=== PATIENT | female | born 1945 | race Caucasian/White ===

== ENCOUNTER → 2017-06-18 | Outpatient (CLI) | payer MEDICARE, OTHER ==
--- NOTE | 2017-06-18 10:33 | WOMENS IMAGING REPORT ---
EXAM DESCRIPTION: BILAT SCREENING MAMMO W/CAD COMPLETED DATE/TIME: 06/18/2017 9:01 am REASON FOR STUDY: ROUTINE SCREENING; Z12.31 Z12.31 ENCNTR SCREEN MAMMOGRAM FOR MALIGNANT NEOPLASM O F LIBBY COMPARISON: 07/02/2016 and 06/26/2015. TECHNIQUE: Standard craniocaudal and mediolateral oblique views of each breast recorded using digita l acquisition. LIMITATIONS: None. FINDINGS: No masses, calcifications or architectural distortion. No areas of suspicion. Read with the assistance of CAD. .[facility] - R2 Cenova Version 1.3 .[facility] - R2 Cenova Version 1.3 .[facility] - R2 Cenova Version 2.4 .[facility] Cenova Version 2.4 .[facility] - R2 Tool Grinder Version 9.2 IMPRESSION: NORMAL MAMMOGRAM. BIRADS 1. BREAST DENSITY: c. The breasts are heterogeneously dense, which may obscure small masses. BIRAD: 1 NEGATIVE RECOMMENDATION: ROUTINE SCREENING COMMENT: The patient has been notified of the results by letter per MQSA requirements. Additional no tification policies are in place for contacting patient with suspicious or incomplete findings. Quality ID #[id number]: The [employer] recommends an annual screening mammogram for women aged 40 years or over. This facility utilizes a reminder system to ensure that all patients receive reminder letters, and/or direct phone calls for appointments. This includes reminders for routine scr eening mammograms, diagnostic mammograms, or other Breast Imaging Interventions when appropriate. Th is patient will be placed in the appropriate reminder system. The [employer] (ACR) has developed recommendations for screening MRI of the breast s in certain patient populations, to be used in conjunction with mammography. Breast MRI surveillanc e may be appropriate for women with more than 20% lifetime risk of developing breast cancer as deter mined by genetic testing, significant family history of the disease, or history of mantle radiation f or Hodgkins Disease. ACR Practice Guidelines 2008. TECHNICAL DOCUMENTATION: FINDING NUMBER: (1) ASSESSMENT: (1) JOB ID: [id number] [employer]- All Rights Reserved
== END ==
LOC: WI 08:43
PROVIDERS: ATTEND Family Medicine
DX: Z12.31 Encounter for screening mammogram for malignant neoplasm of breast (principal)
CPT/HCPCS: 77067; G0202

== ENCOUNTER → 2018-06-23 | Outpatient (CLI) | payer MEDICARE, OTHER ==
--- NOTE | 2018-06-23 14:34 | WOMENS IMAGING REPORT ---
EXAM DESCRIPTION: BILAT SCREENING MAMMO W/CAD COMPLETED DATE/TIME: 06/23/2018 2:15 pm REASON FOR STUDY: BILATERAL SCREENING MAMMO/Z12.31 Z12.31 ENCNTR SCREEN MAMMOGRAM FOR MALIGNANT LUBA PLASM OF LIBBY COMPARISON: June 2017 and June 2016 TECHNIQUE: Standard craniocaudal and mediolateral oblique views of each breast recorded using Footnotea l acquisition. LIMITATIONS: None. FINDINGS: No masses, calcifications or architectural distortion. No areas of suspicion. Read with the assistance of CAD. .[facility] - R2 Cenova Version 1.3 .[facility] Imaging - R2 Cenova Version 1.3 .[facility] - R2 Cenova Version 2.4 .[facility] [place] R2 Cenova Version 2.4 .[facility] - R2 Community Liaison Version 9.2 IMPRESSION: NORMAL MAMMOGRAM. BIRADS 1. BREAST DENSITY: c. The breasts are heterogeneously dense, which may obscure small masses. BIRAD: 1 NEGATIVE RECOMMENDATION: ROUTINE SCREENING COMMENT: The patient has been notified of the results by letter per [place] requirements. Additional no tification policies are in place for contacting patient with suspicious or incomplete findings. Quality ID #[id number]: The [employer] recommends an annual screening mammogram for women aged 40 years or over. This facility utilizes a reminder system to ensure that all patients receive reminder letters, and/or direct phone calls for appointments. This includes reminders for routine scr eening mammograms, diagnostic mammograms, or other Breast Imaging Interventions when appropriate. Th is patient will be placed in the appropriate reminder system. The [employer] (ACR) has developed recommendations for screening MRI of the breast s in certain patient populations, to be used in conjunction with mammography. Breast MRI surveillanc e may be appropriate for women with more than 20% lifetime risk of developing breast cancer as deter mined by genetic testing, significant family history of the disease, or history of mantle radiation f or Hodgkins Disease. ACR Practice Guidelines 2008. TECHNICAL DOCUMENTATION: FINDING NUMBER: (1) ASSESSMENT: (1) JOB ID: [id number] [employer]- All Rights Reserved Reading location - IP/workstation name: [email or web address]
== END ==
LOC: WI 13:50
PROVIDERS: ATTEND Family Medicine
DX: Z12.31 Encounter for screening mammogram for malignant neoplasm of breast (principal)
CPT/HCPCS: 77067

== ENCOUNTER → 2020-05-23 | Outpatient (CLI) | payer MEDICARE, OTHER ==
--- NOTE | 2020-05-23 12:36 | WOMENS IMAGING REPORT ---
EXAM DESCRIPTION: BONE DENSITY HIP/SPINE IMAGES COMPLETED DATE/TIME: 05/23/2020 9:59 am REASON FOR STUDY: M81.0 M81.0 AGE-RELATED OSTEOPOROSIS W/O CURRENT PATHOLOGICAL FRAC R01.1 CARDIAC MURMUR, UNSPECIFIED COMPARISON: 07/18/2005 TECHNIQUE: Dual-Energy X-ray Absorptiometry (DEXA) of the AP Spine and Hip. LIMITATIONS: None. FINDINGS: LUMBAR SPINE: The bone mineral density (BMD) measured from L1-L4 in the AP projection correlates with a T-score of 0.4, which is normal as defined by the World Health Organization. BMD Change vs Baseline: -4.8% HIP: The bone mineral density (BMD) measured in the left hip correlates with a T-score of -1.3, which is o steopenia as defined by the World Health Organization. BMD Change vs Baseline: N/A 10 year Fracture Risk Assessment: Major Osteoporotic Fracture: 12% Hip Fracture: 1.9% IMPRESSION: 1. LUMBAR SPINE WHO CLASSIFICATION: NORMAL. 2. HIP WHO CLASSIFICATION: OSTEOPENIA. CT COMMENT: The World Health Organization defines low BMD as follows: T-score: Normal: At or above -1.0 Osteopenia: Between -1.0 and -2.5 Osteoporosis: At or below -2.5 without fractures Established osteoporosis: At or below -2.5 with fractures In general, you may wish to consider: Diagnosis Treatment Follow-up DEXA Normal BMD Prevention 2-3 years Osteopenia Prevention/Therapy 1-2 years Osteoporosis Therapy Yearly TECHNICAL DOCUMENTATION: JOB ID: [id number] 2010 [employer]- All Rights Reserved Reading location - IP/workstation name: [email or web address]
--- NOTE | 2020-05-23 17:35 | XCELERA REPORT ---
[address] [address] Transthoracic Echocardiogram Report Name: GM BAEZ Age: 74 yrs Gender: Female : 1945 Patient Status: Outpatient Patient Location: [place] Study Date: 05/23/2020 10:24 AM Height: 58 in Weight: 170 lb BSA: 1.7 m2 Procedure: A complete two-dimensional transthoracic echocardiogram was performed (2D, M-mode, spectral and color flow Doppler). The study was technically adequate with some images being suboptimal in quality. Reason For Study: HEART MURMUR Ordering Physician: WENDY VAZQUEZ Performed By: Leonarda Garcia Interpretation Summary FINDINGS: technically difficult. LEFT VENTRICLE: LV Systolic function: LVEF is felt to be within normal limits. Best estimate is approximately LVEF is 60 to 65%. LV Diastolic Function: Grade I diastolic dysfunction noted. Wall motion: not all wall segment were well visualised. Regional wall motion cannot be accurately commented upon. Left ventricular chamber size: is within normal limit. Left ventricular wall thickness: is increased indicative of Mild LVH. RIGHT VENTRICLE: RV systolic function: is felt to be within normal limit. Right Ventricle Size: is within normal limits. LEFT ATRIUM size: is mildly dilated. RIGHT ATRIUM size: is within normal limit. INTER ATRIAL SEPTUM: No definite atrial septal defect noted however a small PFO could be missed. AORTIC ROOT: seems to be within normal limits. ASCENDING AORTA: is not well visualized. INFERIOR VENA CAVA: normal with normal respiratory variation VALVES: MITRAL VALVE: Leaflets are mildly thickened. Mobility seems to be within normal limits. Mitral Regurgitation: Trace mitral regurgitation is noted. Mitral Stenosis: No mitral stenosis noted. Mitral valve prolapse: none noted. AORTIC VALVE: all leaflets not well visualised but with mild thickening and adequate excursion. Aortic stenosis: No aortic stenosis noted. Aortic regurgitation: No aortic incompetence noted. TRICUSPID VALVE: mobility and structures within normal limit. Tricuspid stenosis: no tricuspid stenosis noted. Tricuspid regurgitation: Trace tricuspid regurgitation noted. Estimated RVS : cannot be accurately commented upon but possibly at upper limit of normal. PULMONARY VALVE: was not well visualized but no significant abnormalities suspected. Pulmonary stenosis: no pulmonary stenosis noted. Pulmonary regurgitation: no significant pulmonary regurgitation noted. MASSES AND THROMBUS: No definite intracardiac thrombus or masses are noted. PERICARDIUM: No pericardial effusion was noted. IMPRESSION: 1. Normal LVEF. 2. Mild LVH noted. 3. Grade I Diastolic Dysfunction noted. 4. No significant valvular stenosis or regurgitation noted. 5. LA is mildly dilated. MMode/2D Measurements & Calculations RVDd: 2.4 cm LVIDd: 3.8 cm FS: 32.3 % Ao root diam: 2.5 cm IVSd: 1.2 cm LVIDs: 2.5 cm EDV(Teich): Ao root area: 60.4 ml LVPWd: 0.98 cm 5.0 cm2 ESV(Teich): 23.4 ml EF(Teich): 61.3 % EDV(MOD-sp4): SV(MOD-sp4): 70.0 ml 42.4 ml ESV(MOD-sp4): 27.6 ml EF(MOD-sp4): 60.5 % Doppler Measurements & Calculations MV E max annel: MV dec slope: Ao V2 max: LV V1 max P.1 cm/sec 141.5 cm/sec 5.7 mmHg MV A max annel: 287.3 cm/sec2 Ao max PG: LV V1 max: 107.7 cm/sec MV dec time: 8.0 mmHg 119.9 cm/sec MV E/A: 0.81 0.30 sec PA V2 max: PI end-d annel: TR max annel: 84.6 cm/sec 85.1 cm/sec 234.9 cm/sec PA max P.9 mmHg TR max P.1 mmHg : WENDY VAZQUEZ Shyamal
--- OUTSIDE RECORDS SUMMARY | 2020-05-24 18:25 | XMS REPORT ---
:1945 [facility] [place] [address] [place] [address] Care Team Providers Name Role Phone Asha MORELOS Attending Clinician Unavailable Desirae Attending Clinician Unavailable Bonny Attending Clinician Unavailable Desirae Attending Clinician Unavailable Allergies, Adverse Reactions, Alerts This patient has no known allergies or adverse reactions. Medications Ordered Filled Start Stop Current Ordering Indication Dosage Frequency Signature Comments Components Medication Medication Date Date Medication? Clinician (SIG) Name Name Aspirin 81 2019- Yes Aspirin 81 MG Oral 1-10 MG Oral Tablet 00:00: Tablet Delayed 00 Delayed Release Release TAKE ONE TABLET BY MOUTH EVERY DAY Refills: 0 Start : 0Active Multi-Vitam 2019-07 Yes Multi-Juany in Daily 1-10 min Daily Oral Tablet 00:00: Oral 00 Tablet Refills: 0 Start : 0Active MegaRed 2019-07 Yes MegaRed Hearne-3 1-10 Hearne-3 Krill Oil 00:00: Krill Oil 500 MG Oral 00 500 MG Capsule Oral Capsule Refills: 0 Start : 0Active Calcium 2019- Yes Calcium 1000 + D 1-10 1000 + D 1000-800 00:00: 1000-800 MG-UNIT 00 MG-UNIT Oral Tablet Oral Tablet Refills: 0 Start : 0Active hydroCHLORO 2019- Yes hydroCHLOR thiazide 1-10 Othiazide 12.5 MG 00:00: 12.5 MG Oral Tablet 00 Oral Tablet Refills: 0 Start : 0Active ZyrTEC 2019- Yes ZyrTEC Allergy 10 1-10 Allergy 10 MG Oral 00:00: MG Oral Tablet 00 Tablet Refills: 0 Start : 0Active Fenugreek 2019-07 Yes Fenugreek 610 MG Oral 1-10 610 MG Capsule 00:00: Oral 00 Capsule Refills: 0 Start : 0Active Turmeric 2019-07 Yes Turmeric 500 MG Oral 1-10 500 MG Capsule 00:00: Oral 00 Capsule Refills: 0 Start : 0Active Magnesium 2019- Yes Magnesium Oxide 400 1-10 Oxide 400 (240 Mg) MG 00:00: (240 Mg) Oral Tablet 00 MG Oral Tablet Refills: 0 Start : 0Active CPAP 2019-07 Yes Anaya CPAP 1-10 Asha MORELOS PLEASE 00:00: SEND DOWNLOAD Quantity: 1 Refills: 0 Anaya Barry MD Start : 0Active Omeprazole 2019-07 Yes Omeprazole 20 MG Oral 1-05 20 MG Oral Capsule 00:00: Capsule Delayed 00 Delayed Release Release Quantity: 90 Refills: 0 Start : 17-May-2020 Active Lisinopril 2019-07 Yes Lisinopril 40 MG Oral 0-16 40 MG Oral Tablet 00:00: Tablet 00 Quantity: 90 Refills: 0 Start : 0Active Atorvastati 0 Yes Atorvastat n Calcium 9-02 in Calcium 40 MG Oral 00:00: 40 MG Oral Tablet 00 Tablet Quantity: 90 Refills: 0 Start : 14-Mar-2020 Active Meloxicam Yes Meloxicam 15 MG Oral 6-23 15 MG Oral Tablet 00:00: Tablet 00 Quantity: 90 Refills: 0 Start : 0Active hydrochloro No hydrochlor thiazide othiazide 12.5 mg 12.5 mg tablet TAKE tablet 1 TABLET BY TAKE 1 MOUTH EVERY TABLET BY DAY MOUTH EVERY DAY lisinopril No lisinopril 40 mg 40 mg tablet TAKE tablet 1 TABLET BY TAKE 1 MOUTH EVERY TABLET BY DAY MOUTH EVERY DAY meloxicam No meloxicam 15 mg 15 mg tablet TAKE tablet 1 TABLET BY TAKE 1 MOUTH EVERY TABLET BY DAY MOUTH EVERY DAY omeprazole No omeprazole 20 mg 20 mg capsule,del capsule,de ayed layed release release TAKE 1 TAKE 1 CAPSULE BY CAPSULE BY MOUTH EVERY MOUTH DAY BEFORE EVERY DAY MEALS BEFORE MEALS Adult No Adult Aspirin Aspirin Regimen 81 Regimen 81 mg mg tablet,laxmi tablet,del yed release ayed release alprazolam No alprazolam 0.25 mg 0.25 mg tablet tablet Medications No Medication not s not documented documented Medications No Medication not s not documented documented amoxicillin No amoxicilli 500 mg n 500 mg capsule capsule Medications No Medication not s not documented documented Medications No Medication not s not documented documented amoxicillin No amoxicilli 500 mg n 500 mg tablet tablet atorvastati No atorvastat n 40 mg in 40 mg tablet TAKE tablet 1 TABLET BY TAKE 1 MOUTH EVERY TABLET BY DAY MOUTH EVERY DAY clobetasol No clobetasol 0.05 % 0.05 % scalp scalp solution solution Problems Condition Condition Condition Status Onset Resolution Last Treatin g Comments Name Details Category Date Date Treatment Clinician Date 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 03-21 mellitus Mellitus 00:00: without without 00 complicatio Complicatio n n Osteoarthri Osteoarthri Problem Active tis of knee tis of Knee 03-21 00:00: 00 History of History of Problem Active cardiovascu Cardiovascu 03-21 lar disease lar Disease 00:00: 00 Chest pain, Chest pain, Problem Active unspecified unspecified type type Dyspnea Dyspnea Problem Active Obstructive Obstructive Problem Active sleep apnea sleep apnea COPD, mild COPD, mild Problem Active Procedures Procedure Date / Time Performed Performing Clinician Devic e XR, knee 2020-05-02 00:00:00 XR-Chest(Pa&Lat) 2020-05-02 00:00:00 OFFICE/OUTPATIENT VISIT EST 2020-04-26 13:00:00 Annual Wellness Visit, Subsequent 2020-04-10 11:00:00 OFFICE/OUTPATIENT VISIT EST 2020-01-26 13:15:00 OFFICE/OUTPATIENT VISIT EST 2019-07-21 13:15:00 OFFICE/OUTPATIENT VISIT EST 2019-01-06 10:30:00 OFFICE/OUTPATIENT VISIT EST 2018-07-08 10:45:00 Total Knee Arthroplasty (Surg) 2018-05-20 00:00:00 Total Knee Arthroplasty (Surg) 2017-07-23 00:00:00 Knee Surgery 2017-07-13 00:00:00 OFFICE/OUTPATIENT VISIT EST 2017-06-29 10:00:00 Carpal Tunnel Release 2014-07-13 00:00:00 Cataract 2008-07-13 00:00:00 Hysterectomy 2008-07-13 00:00:00 Cataract 2007-07-13 00:00:00 Elbow Surgery 2004-07-13 00:00:00 Appendectomy 1983-07-13 00:00:00 Procedures not documented Results Test Description Test Time Test Comments Text Results Atomic Results Result Comments XR-Chest(Pa&Lat) 2020-05-03 12:02:00 An image is avaliable in iSite, click link to view image HEMOGLOBIN A1c WITH eAG 2020-04-20 09:33:00 Test Item Value Reference Range Comments eAG (mmol/L) (test code = 82748807) 7.6 (calc) HEMOGLOBIN A1c (test code = 4548-4) 6.4 % of total Hgb <5.7 eAG (mg/dL) (test code = 96033423) 137 (calc) LIPID PANEL, [id number] 09:33:00 Test Item Value Reference Range Comments HDL CHOLESTEROL (test code = 71606131) 42 mg/dL > OR = 50 TRIGLYCERIDES (test code = 06166834) 120 mg/dL <150 CHOL/HDLC RATIO (test code = 44763498) 3.2 (calc) <5.0 LDL-CHOLESTEROL (test code = 05969910) 71 mg/dL (calc) CHOLESTEROL, TOTAL (test code = 86194634) 134 mg/dL <200 NON HDL CHOLESTEROL (test code = 94697446) 92 mg/dL (calc) <130 COMPREHENSIVE METABOLIC [id number] 09:33:00 Test Item Value Reference Range Comments POTASSIUM (test code = 84694158) 4.4 mmol/L 3.5-5.3 GLUCOSE (test code = 29443664) 127 mg/dL 65-99 ALBUMIN (test code = 62379732) 4.4 g/dL 3.6-5.1 UREA NITROGEN (BUN) (test code = 18 mg/dL 7-25 75917956) eGFR NON-AFR. GEORGIAN (test code = 70 mL/min/1.73m2 > OR = 60 45856482) CREATININE (test code = 47386895) 0.83 mg/dL 0.60-0.93 CARBON DIOXIDE (test code = 72779358) 25 mmol/L 20-32 ALBUMIN/GLOBULIN RATIO (test code = 1.8 (calc) 1.0-2.5 23632272) eGFR (test code = 81 mL/min/1.73m2 > OR = 60 05440376) PROTEIN, TOTAL (test code = 74738366) 6.8 g/dL 6.1-8.1 CALCIUM (test code = 94167079) 9.7 mg/dL 8.6-10.4 ALT (test code = 79656966) 25 U/L 6-29 GLOBULIN (test code = 03094330) 2.4 g/dL (calc) 1.9-3.7 BILIRUBIN, TOTAL (test code = 0.5 mg/dL 0.2-1.2 85489110) ALKALINE PHOSPHATASE (test code = 64 U/L 37-153 63373221) SODIUM (test code = 39591157) 138 mmol/L 135-146 BUN/CREATININE RATIO (test code = NOT APPLICABLE (calc) 6-22 ) CHLORIDE (test code = 42678032) 103 mmol/L 98-110 AST (test code = 45534371) 22 U/L 10-35 [id number] 09:23:002.19ALBUMIN, RANDOM URINE [id number] 09:23:00 Test Item Value Reference Range Comments ALBUMIN, URINE (test code = 61831320) 0.2 mg/dL ALBUMIN/CREATININE RATIO, RANDOM URINE (test 6 mcg/mg creat <30 code = 82000815) CREATININE, RANDOM URINE (test code = 33 mg/dL 20-275 78438209) COMPREHENSIVE METABOLIC [id number] 09:23:00 Test Item Value Reference Range Comments eGFR NON-AFR. GEORGIAN (test code = 70 mL/min/1.73m2 > OR = 60 55051027) PROTEIN, TOTAL (test code = 39267124) 6.7 g/dL 6.1-8.1 AST (test code = 39383072) 20 U/L 10-35 BILIRUBIN, TOTAL (test code = 0.7 mg/dL 0.2-1.2 74189386) CHLORIDE (test code = 01737256) 102 mmol/L 98-110 BUN/CREATININE RATIO (test code = NOT APPLICABLE (calc) 6-22 18347006) CALCIUM (test code = 21007716) 9.8 mg/dL 8.6-10.4 GLUCOSE (test code = 55456145) 120 mg/dL 65-99 CREATININE (test code = 01044301) 0.83 mg/dL 0.60-0.93 GLOBULIN (test code = 43679960) 2.3 g/dL (calc) 1.9-3.7 UREA NITROGEN (BUN) (test code = 18 mg/dL 7-25 49022356) SODIUM (test code = 61123886) 136 mmol/L 135-146 ALBUMIN (test code = 09178431) 4.4 g/dL 3.6-5.1 CARBON DIOXIDE (test code = 04867042) 25 mmol/L 20-32 eGFR (test code = 81 mL/min/1.73m2 > OR = 60 47951691) ALT (test code = 99792033) 24 U/L 6-29 ALBUMIN/GLOBULIN RATIO (test code = 1.9 (calc) 1.0-2.5 21226089) POTASSIUM (test code = 99127992) 4.3 mmol/L 3.5-5.3 ALKALINE PHOSPHATASE (test code = 65 U/L 37-153 55471334) LIPID PANEL WITH REFLEX TO DIRECT [id number] 09:23:00 Test Item Value Reference Range Comments CHOLESTEROL, TOTAL (test code = 93792903) 131 mg/dL <200 HDL CHOLESTEROL (test code = 69796476) 36 mg/dL > OR = 50 TRIGLYCERIDES (test code = 73450684) 181 mg/dL <150 LDL-CHOLESTEROL (test code = 90510597) 69 mg/dL (calc) CHOL/HDLC RATIO (test code = 52054978) 3.6 (calc) <5.0 NON HDL CHOLESTEROL (test code = 44572082) 95 mg/dL (calc) <130 VITAMIN D,25-OH,TOTAL,[id number] 09:23:0041CBC (INCLUDES DIFF/PLT)2020-01-19 09:23:00 Test Item Value Reference Range Comments NEUTROPHILS (test code = 36113209) 56.8 % ABSOLUTE MONOCYTES (test code = 92971422) 503 cells/uL 200-95 0 ABSOLUTE EOSINOPHILS (test code = 90130731) 279 cells/uL 15-5 00 HEMATOCRIT (test code = 10851581) 40.6 % 35.0-45.0 WHITE BLOOD CELL COUNT (test code = 6.8 Thousand/uL 3.8-10.8 65675953) ABSOLUTE LYMPHOCYTES (test code = 53475456) 2094 cells/uL 850- 3900 MCV (test code = 99300110) 89.6 fL 80.0-100.0 PLATELET COUNT (test code = 94161084) 288 Thousand/uL 140-400 RED BLOOD CELL COUNT (test code = 77142258) 4.53 Million/uL 3.80 -5.10 MCH (test code = 50490605) 30.0 pg 27.0-33.0 ABSOLUTE BASOPHILS (test code = 36205944) 61 cells/uL 0-200 RDW (test code = 83284677) 12.6 % 11.0-15.0 MCHC (test code = 17155021) 33.5 g/dL 32.0-36.0 ABSOLUTE NEUTROPHILS (test code = 83771739) 3862 cells/uL 1500 -7800 MONOCYTES (test code = 53009048) 7.4 % HEMOGLOBIN (test code = 46752857) 13.6 g/dL 11.7-15.5 LYMPHOCYTES (test code = 61247988) 30.8 % BASOPHILS (test code = 05462428) 0.9 % MPV (test code = 38214944) 9.8 fL 7.5-12.5 EOSINOPHILS (test code = 81321098) 4.1 % HEMOGLOBIN A1c WITH [id number] 09:23:00 Test Item Value Reference Range Comments eAG (mg/dL) (test code = 01890738) 131 (calc) eAG (mmol/L) (test code = 21038269) 7.3 (calc) HEMOGLOBIN A1c (test code = 4548-4) 6.2 % of total Hgb <5.7 HEMOGLOBIN A1c WITH [id number] 08:56:00 Test Item Value Reference Range Comments eAG (mg/dL) (test code = 77962401) 134 (calc) eAG (mmol/L) (test code = 92840663) 7.4 (calc) HEMOGLOBIN A1c (test code = 4548-4) 6.3 % of total Hgb <5.7 CBC (H/H, RBC, INDICES, WBC, PLT)2019-10-14 08:56:00 Test Item Value Reference Range Comments MCH (test code = 50263185) 31.7 pg 27.0-33.0 MCV (test code = 71207440) 89.5 fL 80.0-100.0 RED BLOOD CELL COUNT (test code = 02120663) 4.57 Million/uL 3.80 -5.10 HEMATOCRIT (test code = 02392829) 40.9 % 35.0-45.0 HEMOGLOBIN (test code = 16528221) 14.5 g/dL 11.7-15.5 WHITE BLOOD CELL COUNT (test code = 6.0 Thousand/uL 3.8-10.8 26757241) MPV (test code = 78412493) 9.4 fL 7.5-12.5 PLATELET COUNT (test code = 66277107) 304 Thousand/uL 140-400 RDW (test code = 49607378) 12.8 % 11.0-15.0 MCHC (test code = 80745997) 35.5 g/dL 32.0-36.0 ALBUMIN, RANDOM URINE [id number] 08:56:00 Test Item Value Reference Range Comments CREATININE, RANDOM URINE (test code = 39 mg/dL 20-275 58808457) ALBUMIN/CREATININE RATIO, RANDOM URINE (test 5 mcg/mg creat <30 code = 65821183) ALBUMIN, URINE (test code = 57118490) 0.2 mg/dL LIPID PANEL WITH REFLEX TO DIRECT [id number] 08:56:00 Test Item Value Reference Range Comments NON HDL CHOLESTEROL (test code = 40822782) 99 mg/dL (calc) <130 CHOLESTEROL, TOTAL (test code = 88153135) 137 mg/dL <200 CHOL/HDLC RATIO (test code = 74614890) 3.6 (calc) <5.0 HDL CHOLESTEROL (test code = 12941737) 38 mg/dL > OR = 50 TRIGLYCERIDES (test code = 05600052) 160 mg/dL <150 LDL-CHOLESTEROL (test code = 25477088) 75 mg/dL (calc) COMPREHENSIVE METABOLIC [id number] 08:56:00 Test Item Value Reference Range Comments SODIUM (test code = 59788885) 136 mmol/L 135-146 PROTEIN, TOTAL (test code = 58526528) 6.8 g/dL 6.1-8.1 BILIRUBIN, TOTAL (test code = 0.5 mg/dL 0.2-1.2 30941937) CARBON DIOXIDE (test code = 20789999) 26 mmol/L 20-32 ALBUMIN (test code = 45471332) 4.7 g/dL 3.6-5.1 UREA NITROGEN (BUN) (test code = 19 mg/dL 7-25 70087567) ALBUMIN/GLOBULIN RATIO (test code = 2.2 (calc) 1.0-2.5 90827093) CHLORIDE (test code = 46882185) 100 mmol/L 98-110 POTASSIUM (test code = 94352154) 4.6 mmol/L 3.5-5.3 ALT (test code = 72206212) 30 U/L 6-29 eGFR NON-AFR. GEORGIAN (test code = 66 mL/min/1.73m2 > OR = 60 95290772) BUN/CREATININE RATIO (test code = NOT APPLICABLE (calc) 6-22 46646224) CREATININE (test code = 69384219) 0.87 mg/dL 0.60-0.93 CALCIUM (test code = 35081876) 9.9 mg/dL 8.6-10.4 GLUCOSE (test code = 99742682) 121 mg/dL 65-99 GLOBULIN (test code = 87980578) 2.1 g/dL (calc) 1.9-3.7 eGFR (test code = 77 mL/min/1.73m2 > OR = 60 53452203) ALKALINE PHOSPHATASE (test code = 67 U/L 37-153 32152396) AST (test code = 85689405) 24 U/L 10-35 [id number] 08:36:004.18VITAMIN D,25-OH,TOTAL,[id number] 08:36:0044 COMPREHENSIVE METABOLIC [id number] 08:36:00 Test Item Value Reference Range Comments eGFR (test code = 71 mL/min/1.73m2 > OR = 60 31979295) ALT (test code = 60962413) 33 U/L 6-29 POTASSIUM (test code = 62063222) 4.4 mmol/L 3.5-5.3 GLUCOSE (test code = 01250463) 129 mg/dL 65-99 eGFR NON-AFR. GEORGIAN (test code = 61 mL/min/1.73m2 > OR = 60 10349804) PROTEIN, TOTAL (test code = 01180806) 7.0 g/dL 6.1-8.1 UREA NITROGEN (BUN) (test code = 21 mg/dL 7-25 56053441) CARBON DIOXIDE (test code = 59262865) 24 mmol/L 20-32 BUN/CREATININE RATIO (test code = NOT APPLICABLE (calc) 6-22 34185767) AST (test code = 66142989) 27 U/L 10-35 CHLORIDE (test code = 58887849) 100 mmol/L 98-110 BILIRUBIN, TOTAL (test code = 0.6 mg/dL 0.2-1.2 17418408) CREATININE (test code = 77815371) 0.93 mg/dL 0.60-0.93 CALCIUM (test code = 02364552) 9.8 mg/dL 8.6-10.4 SODIUM (test code = 64217240) 134 mmol/L 135-146 ALBUMIN (test code = 05276240) 4.4 g/dL 3.6-5.1 ALKALINE PHOSPHATASE (test code = 72 U/L 33-130 09481597) GLOBULIN (test code = 64666980) 2.6 g/dL (calc) 1.9-3.7 ALBUMIN/GLOBULIN RATIO (test code = 1.7 (calc) 1.0-2.5 81470295) CBC (INCLUDES DIFF/PLT)2019-06-21 08:36:00 Test Item Value Reference Range Comments MCV (test code = 03793586) 91.2 fL 80.0-100.0 ABSOLUTE NEUTROPHILS (test code = 62021427) 3254 cells/uL 1500 -7800 PLATELET COUNT (test code = 67847427) 306 Thousand/uL 140-400 BASOPHILS (test code = 72650601) 0.9 % MPV (test code = 31453257) 9.6 fL 7.5-12.5 WHITE BLOOD CELL COUNT (test code = 6.6 Thousand/uL 3.8-10.8 52076678) ABSOLUTE EOSINOPHILS (test code = 92255711) 290 cells/uL 15-5 00 LYMPHOCYTES (test code = 65351514) 38.4 % HEMATOCRIT (test code = 91020450) 41.7 % 35.0-45.0 RDW (test code = 56830599) 12.8 % 11.0-15.0 EOSINOPHILS (test code = 19780662) 4.4 % ABSOLUTE BASOPHILS (test code = 44576862) 59 cells/uL 0-200 MCHC (test code = 19168693) 32.6 g/dL 32.0-36.0 NEUTROPHILS (test code = 40155598) 49.3 % MCH (test code = 37038349) 29.8 pg 27.0-33.0 ABSOLUTE LYMPHOCYTES (test code = 11275057) 2534 cells/uL 850- 3900 RED BLOOD CELL COUNT (test code = 29794011) 4.57 Million/uL 3.80 -5.10 HEMOGLOBIN (test code = 01066064) 13.6 g/dL 11.7-15.5 MONOCYTES (test code = 86267847) 7.0 % ABSOLUTE MONOCYTES (test code = 48014582) 462 cells/uL 200-95 0 HEMOGLOBIN A1c WITH [id number] 08:36:00 Test Item Value Reference Range Comments HEMOGLOBIN A1c (test code = 4548-4) 6.5 % of total Hgb <5.7 eAG (mg/dL) (test code = 38735644) 140 (calc) eAG (mmol/L) (test code = 38260915) 7.7 (calc) ALBUMIN, RANDOM URINE [id number] 08:36:00 Test Item Value Reference Range Comments CREATININE, RANDOM URINE (test code = 34 mg/dL 20-275 14056365) ALBUMIN, URINE (test code = 15832452) <0.2 mg/dL ALBUMIN/CREATININE RATIO, RANDOM URINE NOTE mcg/mg creat <30 (test code = 57043505) LIPID PANEL WITH REFLEX TO DIRECT [id number] 08:36:00 Test Item Value Reference Range Comments HDL CHOLESTEROL (test code = 59733458) 37 mg/dL >50 LDL-CHOLESTEROL (test code = 98233643) 97 mg/dL (calc) CHOLESTEROL, TOTAL (test code = 63496856) 164 mg/dL <200 TRIGLYCERIDES (test code = 84554267) 210 mg/dL <150 CHOL/HDLC RATIO (test code = 32020312) 4.4 (calc) <5.0 NON HDL CHOLESTEROL (test code = 17321072) 127 mg/dL (calc) <130 MICROALBUMIN, RANDOM URINE (W/CREATININE)2018-12-30 09:58:00 Test Item Value Reference Range Comments MICROALBUMIN/CREATININE RATIO, RANDOM URINE 9 mcg/mg creat <30 (test code = 81940227) CREATININE, RANDOM URINE (test code = 47 mg/dL 20-275 65608498) MICROALBUMIN (test code = 67813498) 0.4 mg/dL [id number] 09:58:001.89CBC (H/H, RBC, INDICES, WBC, PLT)2018-12-30 09:58:00 Test Item Value Reference Range Comments PLATELET COUNT (test code = 30252385) 322 Thousand/uL 140-400 MCV (test code = 43392493) 87.3 fL 80.0-100.0 MCH (test code = 49445227) 29.8 pg 27.0-33.0 RED BLOOD CELL COUNT (test code = 10652256) 4.57 Million/uL 3.80 -5.10 HEMATOCRIT (test code = 96643054) 39.9 % 35.0-45.0 MCHC (test code = 25310636) 34.1 g/dL 32.0-36.0 WHITE BLOOD CELL COUNT (test code = 6.0 Thousand/uL 3.8-10.8 18363042) MPV (test code = 62482696) 9.2 fL 7.5-12.5 HEMOGLOBIN (test code = 88701779) 13.6 g/dL 11.7-15.5 RDW (test code = 50906930) 12.6 % 11.0-15.0 LIPID PANEL WITH REFLEX TO DIRECT [id number] 09:58:00 Test Item Value Reference Range Comments CHOL/HDLC RATIO (test code = 40359261) 3.4 (calc) <5.0 NON HDL CHOLESTEROL (test code = 89726963) 95 mg/dL (calc) <130 LDL-CHOLESTEROL (test code = 94381481) 71 mg/dL (calc) TRIGLYCERIDES (test code = 07453947) 158 mg/dL <150 CHOLESTEROL, TOTAL (test code = 65043103) 134 mg/dL <200 HDL CHOLESTEROL (test code = 82452847) 39 mg/dL >50 COMPREHENSIVE METABOLIC [id number] 09:58:00 Test Item Value Reference Range Comments BILIRUBIN, TOTAL (test code = 0.6 mg/dL 0.2-1.2 19368923) BUN/CREATININE RATIO (test code = NOT APPLICABLE (calc) 6-22 93668817) ALT (test code = 89188598) 29 U/L 6-29 PROTEIN, TOTAL (test code = 62478669) 6.9 g/dL 6.1-8.1 ALKALINE PHOSPHATASE (test code = 75 U/L 33-130 98856312) CREATININE (test code = 98609850) 0.91 mg/dL 0.60-0.93 POTASSIUM (test code = 86689616) 4.4 mmol/L 3.5-5.3 SODIUM (test code = 09105707) 136 mmol/L 135-146 eGFR NON-AFR. GEORGIAN (test code = 63 mL/min/1.73m2 > OR = 60 47238200) GLOBULIN (test code = 73596160) 2.2 g/dL (calc) 1.9-3.7 UREA NITROGEN (BUN) (test code = 17 mg/dL 7-25 29215861) CHLORIDE (test code = 05603675) 101 mmol/L 98-110 ALBUMIN (test code = 96039834) 4.7 g/dL 3.6-5.1 CALCIUM (test code = 07402795) 10.1 mg/dL 8.6-10.4 ALBUMIN/GLOBULIN RATIO (test code = 2.1 (calc) 1.0-2.5 12379333) AST (test code = 72945430) 24 U/L 10-35 eGFR (test code = 73 mL/min/1.73m2 > OR = 60 94629502) CARBON DIOXIDE (test code = 67192487) 26 mmol/L 20-32 GLUCOSE (test code = 11221286) 127 mg/dL 65-99 HEMOGLOBIN A1c WITH [id number] 09:58:00 Test Item Value Reference Range Comments eAG (mg/dL) (test code = 88706892) 134 (calc) HEMOGLOBIN A1c (test code = 45586601) 6.3 % of total Hgb <5.7 eAG (mmol/L) (test code = 93610150) 7.4 (calc) MICROALBUMIN, RANDOM URINE (W/CREATININE)2018-07-01 10:46:00 Test Item Value Reference Range Comments MICROALBUMIN/CREATININE RATIO, RANDOM URINE 8 mcg/mg creat <30 (test code = 65005793) MICROALBUMIN (test code = 61736537) 0.4 mg/dL CREATININE, RANDOM URINE (test code = 52 mg/dL 20-275 95042321) COMPREHENSIVE METABOLIC [id number] 10:46:00 Test Item Value Reference Range Comments CHLORIDE (test code = 32604227) 98 mmol/L 98-110 AST (test code = 67705934) 23 U/L 10-35 SODIUM (test code = 11995029) 136 mmol/L 135-146 eGFR (test code = 75 mL/min/1.73m2 > OR = 60 03554277) PROTEIN, TOTAL (test code = 85493110) 6.9 g/dL 6.1-8.1 CARBON DIOXIDE (test code = 18269300) 26 mmol/L 20-32 ALT (test code = 02839002) 27 U/L 6-29 ALBUMIN/GLOBULIN RATIO (test code = 1.9 (calc) 1.0-2.5 40783156) BUN/CREATININE RATIO (test code = NOT APPLICABLE (calc) 6-22 44401448) GLOBULIN (test code = 11987152) 2.4 g/dL (calc) 1.9-3.7 eGFR NON-AFR. GEORGIAN (test code = 65 mL/min/1.73m2 > OR = 60 49361608) CALCIUM (test code = 05642358) 10.1 mg/dL 8.6-10.4 GLUCOSE (test code = 45690458) 126 mg/dL 65-99 CREATININE (test code = 83885181) 0.89 mg/dL 0.60-0.93 BILIRUBIN, TOTAL (test code = 0.7 mg/dL 0.2-1.2 14944539) UREA NITROGEN (BUN) (test code = 21 mg/dL 7-25 83299550) POTASSIUM (test code = 06602688) 4.3 mmol/L 3.5-5.3 ALBUMIN (test code = 55962231) 4.5 g/dL 3.6-5.1 ALKALINE PHOSPHATASE (test code = 64 U/L 33-130 25037055) CBC (H/H, RBC, INDICES, WBC, PLT)2018-07-01 10:46:00 Test Item Value Reference Range Comments MCHC (test code = 63536033) 34.2 g/dL 32.0-36.0 HEMOGLOBIN (test code = 14652553) 13.0 g/dL 11.7-15.5 MCH (test code = 66458248) 29.7 pg 27.0-33.0 HEMATOCRIT (test code = 19432730) 38.0 % 35.0-45.0 MPV (test code = 01706334) 9.3 fL 7.5-12.5 PLATELET COUNT (test code = 47558690) 283 Thousand/uL 140-400 MCV (test code = 10634590) 87.0 fL 80.0-100.0 RDW (test code = 85365090) 13.7 % 11.0-15.0 WHITE BLOOD CELL COUNT (test code = 5.8 Thousand/uL 3.8-10.8 27452657) RED BLOOD CELL COUNT (test code = 83012772) 4.37 Million/uL 3.80 -5.10 LIPID PANEL WITH REFLEX TO DIRECT [id number] 10:46:00 Test Item Value Reference Range Comments TRIGLYCERIDES (test code = 10390053) 210 mg/dL <150 NON HDL CHOLESTEROL (test code = 75945971) 102 mg/dL (calc) <130 CHOLESTEROL, TOTAL (test code = 32960548) 140 mg/dL <200 LDL-CHOLESTEROL (test code = 99063325) 72 mg/dL (calc) CHOL/HDLC RATIO (test code = 17835841) 3.7 (calc) <5.0 HDL CHOLESTEROL (test code = 39553971) 38 mg/dL >50 HEMOGLOBIN A1c WITH [id number] 10:46:00 Test Item Value Reference Range Comments HEMOGLOBIN A1c (test code = 61688706) 6.1 % of total Hgb <5.7 eAG (mg/dL) (test code = 26319184) 128 (calc) eAG (mmol/L) (test code = 18215114) 7.1 (calc) LIPID PANEL WITH REFLEX TO DIRECT [id number] 09:32:00 Test Item Value Reference Range Comments LDL-CHOLESTEROL (test code = 72314216) 113 mg/dL (calc) CHOL/HDLC RATIO (test code = 61068646) 5.1 (calc) <5.0 TRIGLYCERIDES (test code = 37810642) 252 mg/dL <150 NON HDL CHOLESTEROL (test code = 27449171) 149 mg/dL (calc) <130 CHOLESTEROL, TOTAL (test code = 08869396) 185 mg/dL <200 HDL CHOLESTEROL (test code = 92150512) 36 mg/dL >50 COMPREHENSIVE METABOLIC [id number] 09:32:00 Test Item Value Reference Range Comments POTASSIUM (test code = 23381280) 4.4 mmol/L 3.5-5.3 GLUCOSE (test code = 64628635) 116 mg/dL 65-99 UREA NITROGEN (BUN) (test code = 19 mg/dL 7-25 73968241) CALCIUM (test code = 50477373) 9.8 mg/dL 8.6-10.4 SODIUM (test code = 57018451) 135 mmol/L 135-146 BUN/CREATININE RATIO (test code = NOT APPLICABLE (calc) 6-22 91056109) CARBON DIOXIDE (test code = 97069153) 27 mmol/L 20-31 GLOBULIN (test code = 79849634) 2.2 g/dL (calc) 1.9-3.7 ALBUMIN/GLOBULIN RATIO (test code = 1.9 (calc) 1.0-2.5 45554345) CHLORIDE (test code = 42267951) 101 mmol/L 98-110 CREATININE (test code = 04099622) 0.93 mg/dL 0.60-0.93 ALT (test code = 22004865) 20 U/L 6-29 PROTEIN, TOTAL (test code = 07985176) 6.4 g/dL 6.1-8.1 AST (test code = 22309273) 20 U/L 10-35 eGFR (test code = 72 mL/min/1.73m2 > OR = 60 70854908) ALKALINE PHOSPHATASE (test code = 56 U/L 33-130 07124540) BILIRUBIN, TOTAL (test code = 0.5 mg/dL 0.2-1.2 61542091) ALBUMIN (test code = 26870833) 4.2 g/dL 3.6-5.1 eGFR NON-AFR. GEORGIAN (test code = 62 mL/min/1.73m2 > OR = 60 55843925) MICROALBUMIN, RANDOM URINE (W/CREATININE)2017-12-31 09:32:00 Test Item Value Reference Range Comments CREATININE, RANDOM URINE (test code = 54 mg/dL 20-320 99306120) MICROALBUMIN (test code = 71067411) 0.2 mg/dL MICROALBUMIN/CREATININE RATIO, RANDOM URINE 4 mcg/mg creat <30 (test code = 76549136) HEMOGLOBIN A1c WITH [id number] 09:32:00 Test Item Value Reference Range Comments HEMOGLOBIN A1c (test code = 16612003) 5.8 % of total Hgb <5.7 eAG (mg/dL) (test code = 40684783) 120 (calc) eAG (mmol/L) (test code = 74636651) 6.6 (calc) Hemoglobin A1c with [id number] 09:18:00 Test Item Value Reference Range Comments eAG (calc) (test code = 153772) 123 mg/dL Hemoglobin A1C (test code = 288643) 5.9 % <5.7 Lipid [id number] 09:18:00 Test Item Value Reference Range Comments Triglycerides (test code = 586182) 248 mg/dL <150 LDL Cholesterol (Calc) (test code = 797774) 99 mg/dL <100 HDL Cholesterol (test code = 239660) 34 mg/dL >50 Cholesterol (test code = 630668) 183 mg/dL <200 VLDL Cholesterol (Calc) (test code = 891182) 50 mg/dL <30 Total Chol/HDL Ratio (test code = 620236) 5.4 Ratio <5.0 Microalbumin Creatinine [id number] 09:18:00 Test Item Value Reference Range Comments Microalbumin (test code = 182790) 0.5 mg/dL Not estab Microalbumin/Creatinine Ratio (test code = 7 mcg/mg creat <30 003709) Creatinine, Urine (test code = 553213) 69 mg/dL 20-320 CMP with Estimated [id number] 09:18:00 Test Item Value Reference Range Comments Alkaline Phosphatase (test code = 515538) 48 U/L 33-130 Chloride (test code = 366675) 100 mmol/L 98-110 Potassium (test code = 662604) 4.3 mmol/L 3.5-5.3 AST/SGOT (test code = 137243) 21 U/L 10-35 Est GFR, NonAfrican Martiniquais (test code = 959951) 60 mL/min >=60 Creatinine (test code = 722066) 0.95 mg/dL 0.60-0.93 Sodium (test code = 839336) 136 mmol/L 135-146 ALT/SGPT (test code = 864380) 22 U/L 6-29 CO2 (test code = 078031) 26 mmol/L 20-31 Albumin (test code = 437524) 4.4 g/dL 3.6-5.1 Glucose (test code = 680405) 116 mg/dL 65-99 Calcium (test code = 431447) 9.6 mg/dL 8.6-10.4 Est GFR, (test code = 500732) 70 mL/min > =60 BUN (test code = 415624) 20 mg/dL 7-25 Bilirubin, Total (test code = 700298) 0.5 mg/dL 0.2-1.2 Total Protein (test code = 801104) 6.8 g/dL 6.1-8.1 CBC NO Diff (Complete Blood Count)2017-06-24 09:18:00 Test Item Value Reference Range Comments Hemoglobin (test code = 866105) 13.5 g/dL 11.7-15.5 MCHC (test code = 821332) 32.0 g/dL 32.0-36.0 RBC (test code = 403814) 4.63 MIL/uL 3.80-5.10 MCV (test code = 797479) 91.1 fL 80.0-100.0 MPV (test code = 632509) 9.4 fL 7.5-12.5 RDW (test code = 638019) 13.7 % 11.0-15.0 MCH (test code = 699122) 29.2 pg 27.0-33.0 Platelet Count (test code = 789867) 350 K/uL 140-400 Hematocrit (test code = 123357) 42.2 % 35.0-45.0 WBC (test code = 673210) 8.3 K/uL 3.8-10.8 Microalbumin Creatinine [id number] 08:31:00 Test Item Value Reference Range Comments Creatinine, Urine (test code = 319220) 41 mg/dL 20-320 Microalbumin (test code = 935762) <0.2 mg/dL Not estab CMP with Estimated [id number] 08:31:00 Test Item Value Reference Range Comments ALT/SGPT (test code = 503811) 24 U/L 6-29 Est GFR, NonAfrican Martiniquais (test code = 242895) 72 mL/min >=60 Sodium (test code = 311131) 139 mmol/L 135-146 AST/SGOT (test code = 488819) 18 U/L 10-35 Glucose (test code = 474477) 115 mg/dL 65-99 Total Protein (test code = 946953) 6.3 g/dL 6.1-8.1 Chloride (test code = 145981) 100 mmol/L 98-110 Alkaline Phosphatase (test code = 303700) 57 U/L 33-130 Potassium (test code = 754950) 4.6 mmol/L 3.5-5.3 BUN (test code = 204648) 19 mg/dL 7-25 CO2 (test code = 032404) 27 mmol/L 20-31 Albumin (test code = 245897) 4.1 g/dL 3.6-5.1 Bilirubin, Total (test code = 997494) 0.3 mg/dL 0.2-1.2 Calcium (test code = 132725) 9.2 mg/dL 8.6-10.4 Est GFR, (test code = 880725) 83 mL/min > =60 Creatinine (test code = 604745) 0.83 mg/dL 0.60-0.93 [id number] 08:31:00 Test Item Value Reference Range Comments TSH (test code = 641061) 2.63 mIU/L Lipid [id number] 08:31:00 Test Item Value Reference Range Comments VLDL Cholesterol (Calc) (test code = 561941) 19 mg/dL <30 Cholesterol (test code = 373511) 149 mg/dL 125-200 Total Chol/HDL Ratio (test code = 080321) 3.4 Ratio <=5.0 LDL Cholesterol (Calc) (test code = 641713) 86 mg/dL <130 HDL Cholesterol (test code = 492259) 44 mg/dL >=46 Triglycerides (test code = 676049) 95 mg/dL <150 Hemoglobin A1c with [id number] 08:31:00 Test Item Value Reference Range Comments Hemoglobin A1C (test code = 176449) 6.2 % <5.7 eAG (calc) (test code = 288761) 131 mg/dL Lipid [id number] 08:30:00 Test Item Value Reference Range Comments Triglyceride (test code = 202304) 256 mg/dL <150 LDL Cholesterol (Calc) (test code = 234356) 85 mg/dL <130 HDL Cholesterol (test code = 920837) 34 mg/dL >=46 Total Chol/HDL Ratio (test code = 103348) 5.0 Ratio <=5.0 VLDL Cholesterol (Calc) (test code = 834571) 51 mg/dL <30 Cholesterol (test code = 896405) 170 mg/dL 125-200 CBC NO Diff (Complete Blood Count)2016-06-23 08:30:00 Test Item Value Reference Range Comments MCH (test code = 009309) 28.8 pg 26.0-34.0 Platelet Count (test code = 002697) 291 K/uL 150-400 RBC (test code = 688642) 4.37 MIL/uL 3.87-5.11 Hemoglobin (test code = 664133) 12.6 g/dL 12.0-15.0 MPV (test code = 809113) 9.0 fL 8.6-12.4 MCHC (test code = 796032) 32.4 g/dL 30.0-36.0 Hematocrit (test code = 159903) 38.9 % 36.0-46.0 WBC (test code = 440836) 6.5 K/uL 4.0-10.5 RDW (test code = 875045) 13.5 % 11.5-15.5 MCV (test code = 310871) 89.0 fL 78.0-100.0 Microalbumin Creatinine [id number] 08:30:00 Test Item Value Reference Range Comments Microalbumin/Creatinine Ratio (test code = 11 mcg/mg creat <30 289834) Creatinine, Urine (test code = 413655) 46 mg/dL 20-320 Microalbumin (test code = 357638) 0.5 mg/dL Not estab CMP with Estimated [id number] 08:30:00 Test Item Value Reference Range Comments Est GFR, NonAfrican Martiniquais (test code = 158029) 70 mL/min >=60 Glucose (test code = 340000) 95 mg/dL 65-99 BUN (test code = 330207) 24 mg/dL 7-25 Total Protein (test code = 218193) 6.3 g/dL 6.1-8.1 Alkaline Phosphatase (test code = 425315) 53 U/L 33-130 Potassium (test code = 327247) 4.6 mmol/L 3.5-5.3 Est GFR, (test code = 910323) 80 mL/min > =60 Creatinine (test code = 104217) 0.85 mg/dL 0.60-0.93 Albumin (test code = 302016) 3.9 g/dL 3.6-5.1 Calcium (test code = 634855) 9.6 mg/dL 8.6-10.4 Chloride (test code = 140572) 102 mmol/L 98-110 Sodium (test code = 974529) 137 mmol/L 135-146 AST/SGOT (test code = 913030) 15 U/L 10-35 CO2 (test code = 976039) 21 mmol/L 20-31 Bilirubin, Total (test code = 553549) 0.4 mg/dL 0.2-1.2 ALT/SGPT (test code = 676509) 17 U/L 6-29 Hemoglobin A1c with [id number] 08:30:00 Test Item Value Reference Range Comments Estimated Average Glucose (test code = 768619) 134 mg/dL < 117 Hemoglobin A1C (test code = 441430) 6.3 % <5.7 Assessments Condition Name Status Diagnosis Date Treating Clinici an COPD, mild Active History of total knee arthroplasty Active 2020-05-02 13 :39:37 Type 2 diabetes mellitus without Active complications Essential (primary) hypertension Active Mixed hyperlipidemia Active Cardiac murmur, unspecified Active Encntr screen mammogram for malignant Active neoplasm of breast Asymptomatic menopausal state Active Type 2 diabetes mellitus without Active complications Body mass index (BMI) 37.0-37.9, adult Active Body mass index (BMI) 37.0-37.9, adult Active Type 2 diabetes mellitus without Active complications Essential (primary) hypertension Active Mixed hyperlipidemia Active Type 2 diabetes mellitus without Active complications Essential (primary) hypertension Active Other physical and mental strain Active related to work Body mass index (BMI) 39.0-39.9, adult Active Type 2 diabetes mellitus without Active complications Essential (primary) hypertension Active Primary generalized (osteo)arthritis Active Body mass index (BMI) 38.0-38.9, adult Active Type 2 diabetes mellitus without Active complications Essential (primary) hypertension Active Gastro-esophageal reflux disease Active without esophagitis Body mass index (BMI) 38.0-38.9, adult Active Type 2 diabetes mellitus without Active complications Plantar wart Active Gastro-esophageal reflux disease Active without esophagitis Essential (primary) hypertension Active Encounters Start End Encounter Admission Attending Care Care Encounter Date/Time Date/Time Type Type Clinicians Facility Department ID 2020-05-22 2020-05-22 Appointment RONEY Barry [facility] [id number] 11:00:00 12:02:19 ; Anaya Barry MD 2020-05-03 2020-05-03 Appointment [facility] [id number] 12:15:00 12:15:00 ; CARA Lobato 2020-05-03 2020-05-03 Appointment [facility] [id number] 11:00:00 11:00:00 ; Pulmonary, Functions 2020-05-02 2020-05-02 Ivan Espinosa [facility], 88 [id number] 00:00:00 00:00:00 MD Odin: lizz, P.A. P.A. [id number] [place] [address], Ph. 2020-04-26 2020-04-26 Outpatient [facility] F [id number] 13:00:00 13:00:00 Je Lopez???s [id number] and [id number] [facility] [id number] Clini 2020-04-10 2020-04-10 [facility] [id number] 11:00:00 11:00:00 Kasey Children [id number] s [id number] and [id number] [facility], 2020-01-26 2020-01-26 [facility] [id number] 13:15:00 13:15:00 Je Children [id number] s [id number] and [id number] [facility], 2019-07-21 2019-07-21 [facility] 5 [id number] 13:15:00 13:15:00 Je Lopez [id number] s [id number] and [id number] [facility], 2019-01-06 2019-01-06 Outpatient [facility] 6 [id number] 10:30:00 10:30:00 Je Lopez [id number] s [id number] and [id number] [facility], 2018-07-08 2018-07-08 Outpatient [facility] 9 [id number] 10:45:00 10:45:00 Je Lopez [id number] s [id number] and [id number] [facility] [place] 2017-06-29 2017-06-29 Outpatient [facility] 7 [id number] 10:00:00 10:00:00 Je Lopez [id number] s [id number] and [id number] [facility] [place], [place] Immunizations Ordered Immunization Filled Immunization Date Status Commen ts Refusal Reason Name Name Pneumococcal 2020-05-22 Completed polysaccharide 11:40:00 vaccine, 23 valent influenza, injectable, 2018-04-12 Completed quadrivalent 00:00:00 influenza, injectable, 2017-02-25 Completed quadrivalent 00:00:00 Plan of Treatment Planned Activity Planned Date Details Comments Future Scheduled Test [code = ] Social History Smoking Status Start Date Stop Date Ex-smoker (finding) Vital Signs Vital Name Observation Time Observation Value Comments Height 2020-05-02 00:00:00 56 [in_i] BMI (Body Mass Index) 2020-05-02 00:00:00 38.1 kg/m2 Body Weight 2020-05-02 00:00:00 170 [lb_av] Systolic blood pressure 2020-05-22 11:06:00 122 mm[Hg] Diastolic blood pressure 2020-05-22 11:06:00 60 mm[Hg] Body height 2020-05-22 11:06:00 59 [in_us] Weight 2020-05-22 11:06:00 173 [lb_av] Body mass index (BMI) [Ratio] 2020-05-22 11:06:00 34.94 kg/m2 Body temperature 2020-05-22 11:06:00 98 [degF] Heart Rate 2020-05-22 11:06:00 65 /min Respiratory rate 2020-05-22 11:06:00 16 /min O2 SAT 2020-05-22 11:06:00 98 % Source: [facility] Discharge Instructions NameDatesDetailsInstructions not documentedNameDatesDetailsInstructions not documented1. History of total knee arthroplasty XR, knee Discussion Note: None recorded. Patient educational handouts: No information available.
== END ==
LOC: WI 09:35
PROVIDERS: ATTEND Family Medicine
DX: M81.0 Age-related osteoporosis without current pathological fracture (principal); R01.1 Cardiac murmur, unspecified; M85.852 Other specified disorders of bone density and structure, left thigh
CPT/HCPCS: 77080; 93306

== ENCOUNTER → 2020-06-26 | Outpatient (CLI) | payer MEDICARE, OTHER ==
--- NOTE | 2020-06-26 11:24 | WOMENS IMAGING REPORT ---
EXAM DESCRIPTION: 3D SCREENING MAMMO BILAT IMAGES COMPLETED DATE/TIME: 06/26/2020 9:26 am REASON FOR STUDY: Z12.31 ENCOUNTER FOR SCREENING MAMMOGRAM FOR MALIGNANT NEOPLASM OF BREAST Z12.31 ENCNTR SCREEN MAMMOGRAM FOR MALIGNANT NEOPLASM OF LIBBY COMPARISON: Priors dating back to 2012 EXAM PARAMETERS: Views: Standard craniocaudal and mediolateral oblique views of each breast recorded using digital acquisition and breast tomosynthesis. Read with the assistance of CAD. .FORMERLY [facility] - [employer] Version 9.2 LIMITATIONS: None. FINDINGS: No suspicious masses, suspicious calcifications or architectural distortion. No areas of c oncern. IMPRESSION: NEGATIVE MAMMOGRAM. BIRADS 1. BREAST DENSITY: b. There are scattered areas of fibroglandular density. BIRAD: ASSESSMENT: 1 NEGATIVE RECOMMENDATION: ROUTINE SCREENING COMMENT: The patient has been notified of the results by letter per MQSA requirements. Additional no tification policies are in place for contacting patient with suspicious or incomplete findings. Quality ID #[id number]: [employer] recommends an annual screening mammogram for women aged 40 years or over. This facility utilizes a reminder system to ensure that all patients receive reminder letters, and/or direct phone calls for appointments. This includes reminders for routine scr eening mammograms, diagnostic mammograms, or other Breast Imaging Interventions when appropriate. Th is patient will be placed in the appropriate reminder system. TECHNICAL DOCUMENTATION: FINDING NUMBER: (1) ASSESSMENT: (1) JOB ID: [id number] 2010 [employer]- All Rights Reserved Reading location - IP/workstation name: [email or web address]
== END ==
LOC: WI 08:56
PROVIDERS: ATTEND Family Medicine
DX: Z12.31 Encounter for screening mammogram for malignant neoplasm of breast (principal)
CPT/HCPCS: 77063; 77067